=== PATIENT | male | born 1960 | race Caucasian/White ===

== ENCOUNTER 2018-04-18 11:53 | Emergency (ER) | payer OTHER ==
[2018-04-18] MEDS ORDERED: DEXAMETHASONE 10 MG/ML VIAL IVP ONE (12:26)
[2018-04-18] MEDS ORDERED: CLINDAMYCIN 600 MG/DEXTROSE 50 ML IV ONE (12:26)
[2018-04-18] MEDS ORDERED: NS 1,000 ML IV ONE (12:26)
--- NOTE | 2018-04-18 12:29 | EDPHY ---
H & P Stated Complaint: SWELLING/PAIN L THROAT/STEVENSON FEVER/NIGHT SWEATS Time Seen by Provider: 04/18/18 12:21 HPI/ROS: CHIEF COMPLAINT: "My throat is sore" HISTORY OF PRESENT ILLNESS: 57-year-old immunocompetent male complaining of 5 days of progressive pharyngitis symptoms. Secondary to the pain the past 48 hr he has decreased oral intake secondary to pain. Positive Decreased urine output. Complaining of change in voice. Complaining of Pain in the submandibular regions. Complaining of odynophagia. No fever or chills. No nuchal rigidity. No headache. PRIMARY CARE PROVIDER:No primary care provider REVIEW OF SYSTEMS: A ten point review of systems was performed and is negative with the exception of the items mentioned in the HPI PAST MEDICAL & SURGICAL HISTORY: No pertinent medical or surgical history SOCIAL HISTORY: No IV drug use PHYSICAL EXAM (Prior to examination, patient consented to physical exam, hands were washed and my usual and customary physical exam procedures followed) 1) GENERAL: Well-developed, well-nourished, alert and oriented. Appears nontoxic. 2) HEAD: Normocephalic, atraumatic 3) HEENT: Pupils equal, round, reactive to light bilaterally. Sclera anicteric. Oropharynx: Bilateral tonsils are enlarged, kissing. Voice is slightly blunted, slight hot potato voice . Ears bilaterally with normal tympanic membranes. 4) NECK: Full range of motion, sub mandibular region is diffusely tender and edematous. Positive bilateral submandibular adenopathy which is concurrently tender. 5) LUNGS: Clear auscultation bilaterally, no wheezes, no rhonchi, no retractions. 6) HEART: Regular rate and rhythm, no murmur, no heave, no gallop. 7) ABDOMEN: No guarding, no rebound, no focal tenderness, negative McBurney's, negative Mcintosh's, negative Rovsing's, negative peritoneal sign, 8) MUSCULOSKELETAL: Moving all extremities, no focal areas of tenderness, no obvious trauma. No peripheral edema or discoloration. 9) BACK: No CVA tenderness, no midline vertebral tenderness, no fluctuance, no step-off, no obvious trauma, no visual or palpable abnormality. 10) SKIN: No rash, no petechiae. 11) Psychiatric: Patient is oriented X 3, there is no agitation. DIFFERENTIAL DIAGNOSIS: In no particular order including but not limited to peritonsillar abscess, strep pharyngitis, retropharyngeal abscess, - Personal History Current Tetanus Diphtheria and Acellular Pertussis (TDAP): Unsure - Medical/Surgical History Hx Asthma: No Hx Chronic Respiratory Disease: No Hx Diabetes: No Hx Cardiac Disease: No Hx Renal Disease: No Hx Cirrhosis: No Hx Alcoholism: No Hx HIV/AIDS: No Hx Splenectomy or Spleen Trauma: No Other PMH: L LEG FX Constitutional: Initial Vital Signs Temperature (C) 37 C 04/18/18 12:02 Heart Rate 122 H 04/18/18 12:02 Respiratory Rate 20 04/18/18 12:02 Blood Pressure 149/102 H 04/18/18 12:02 O2 Sat (%) 98 04/18/18 12:02 O2 Delivery Mode Room Air Allergies/Adverse Reactions: No Known Allergies Allergy (Unverified 04/18/18 12:02) Home Medications: Medication Instructions Recorded NK [No Known Home Meds] 04/18/18 Medical Decision Making - Diagnostics Imaging Results: Imaging Impressions Neck CT 04/18/18 12:29 Impression: Bilobed left tonsillar abscess with extensive regional inflammation extending inferiorly into the left neck with prevertebral soft tissue swelling to the level of the vocal cords and anterior soft tissue swelling to the thoracic inlet. Findings discussed with Drew Hwang on 04/18/2018 at 14:05. Dr. Jose Manuel Chau reviewed the study and agrees with the findings. ED Course/Re-evaluation: 12:28 p.m.: Patient has enlarged bilateral tonsils, I am concerned over deep space infection. I will order CT angiography of the neck administer IV Decadron and IV clindamycin and re-evaluated. Discussed the indications risks benefits with patient he consents. I saw this patient independently based on established practice protocols. Care of patient under supervision of secondary supervising physician Dr Ramirez with whom I discussed case 12:55 p.m.: I reviewed the patient's laboratory studies. Of particular interest is elevated serum glucose of 435. He does not have a primary care provider, has not seen a primary care provider in several years. He does note that he frequently has to get up 2 nights several times to urinate. I discussed the importance of close follow-up regarding his serum glucose. 2:09 p.m.: Phone consultation with ROBERTA Bobo otolaryngology, discussed the patient's clinical and radiologic findings as well as laboratory findings consistent with newly diagnosed diabetes. We discussed the patient's serum glucose levels and discussed inpatient versus outpatient admission. She recommended outpatient evaluation and will see the patient in the office in a few minutes. Patient will go directly there. I also spent in a significant amount of time discussing with the patient and his the importance of establishing care either [facility] or [facility] or with primary care provider of his choosing regarding his elevated serum glucose levels. - Data Points Laboratory Results: Laboratory Results 04/18/18 12:30 04/18/18 12:30 04/18/18 04/18/18 04/18/18 12:44 12:30 12:30 WBC 14.83 10^3/uL H 10^3/uL (3.80-9.50) RBC 4.49 10^6/uL 10^6/uL (4.40-6.38) Hgb 14.1 g/dL g/dL (13.7-17.5) POC Hgb 15.0 gm/dL gm/dL (13.7-17.5) Hct 39.5 % L % (40.0-51.0) POC Hct 44 % % (40-51) MCV 88.0 fL fL (81.5-99.8) MCH 31.4 pg pg (27.9-34.1) MCHC 35.7 g/dL g/dL (32.4-36.7) RDW 11.9 % % (11.5-15.2) Plt Count 217 10^3/uL 10^3/uL (150-400) MPV 10.4 fL fL (8.7-11.7) Neut % (Auto) 84.0 % H % (39.3-74.2) Lymph % (Auto) 6.4 % L % (15.0-45.0) Lea % (Auto) 8.8 % % (4.5-13.0) Eos % (Auto) 0.1 % L % (0.6-7.6) Baso % (Auto) 0.3 % % (0.3-1.7) Nucleat RBC Rel Count 0.0 % % (0.0-0.2) Absolute Neuts (auto) 12.45 10^3/uL H 10^3/uL (1.70-6.50) Absolute Lymphs (auto) 0.95 10^3/uL L 10^3/uL (1.00-3.00) Absolute Monos (auto) 1.31 10^3/uL H 10^3/uL (0.30-0.80) Absolute Eos (auto) 0.01 10^3/uL L 10^3/uL (0.03-0.40) Absolute Basos (auto) 0.05 10^3/uL 10^3/uL (0.02-0.10) Absolute Nucleated RBC 0.00 10^3/uL 10^3/uL (0-0.01) Immature Gran % 0.4 % % (0.0-1.1) Immature Gran # 0.06 10^3/uL 10^3/uL (0.00-0.10) POC Sodium 133 mEq/L L mEq/L (135-145) Sodium 132 mEq/L L mEq/L (135-145) POC Potassium 4.4 mEq/L mEq/L (3.3-5.0) Potassium 4.5 mEq/L mEq/L (3.3-5.0) POC Chloride 97 mEq/L mEq/L (97-110) Chloride 96 mEq/L L mEq/L (97-110) Carbon Dioxide 21 mEq/l L mEq/l (22-31) Anion Gap 15 mEq/L mEq/L (8-16) POC BUN 15 mg/dL mg/dL (7-23) BUN 16 mg/dL mg/dL (7-23) Creatinine 0.6 mg/dL L mg/dL (0.7-1.3) POC Creatinine 0.6 mg/dL L mg/dL (0.7-1.3) Estimated GFR > 60 Glucose 428 mg/dL H mg/dL (70-100) POC Glucose 435 mg/dL H mg/dL (70-100) Calcium 9.4 mg/dL mg/dL (8.5-10.4) Medications Given: Discontinued Medications Dexamethasone (Decadron Injection) 10 mg IVP EDNOW ONE Stop: 04/18/18 12:27 Last Admin: 04/18/18 12:56 Dose: 10 mg Clindamycin Phosphate/Dextrose (Cleocin 600 Mg (Premix)) 50 mls @ 100 mls/hr IV EDNOW ONE PRN Reason: Protocol Stop: 04/18/18 12:55 Last Admin: 04/18/18 12:53 Dose: 50 mls Sodium Chloride (Ns) 1,000 mls @ 0 mls/hr IV ONCE ONE PRN Reason: Wide Open Stop: 04/18/18 12:27 Last Admin: 04/18/18 12:57 Dose: 1,000 mls Point of Care Test Results: Chemistry 04/18/18 12:44 POC Sodium 133 mEq/L L mEq/L (135-145) POC Potassium 4.4 mEq/L mEq/L (3.3-5.0) POC Chloride 97 mEq/L mEq/L (97-110) POC BUN 15 mg/dL mg/dL (7-23) POC Creatinine 0.6 mg/dL L mg/dL (0.7-1.3) POC Glucose 435 mg/dL H mg/dL (70-100) ISTAT H&H 04/18/18 12:44 POC Hgb 15.0 gm/dL gm/dL (13.7-17.5) POC Hct 44 % % (40-51) Departure - Departure Disposition: Home, Routine, Self-Care Clinical Impression: Left peritonsillar abscess Condition: Good Instructions: Peritonsillar Abscess (ED) Additional Instructions: Go directly to [facility] ear nose and throat, they are expecting you. You received an IV dose of clindamycin and Decadron in the ER. You need to establish primary care. Your blood glucose is too high. You more than likely have diabetes. Referrals: Kamla Bobo PA [Physician [employer]] - 04/18/18 2:30 pm (Go directly to [facility] ENT across the hospital) [facility],. [Clinic] - As per Instructions [facility],. [Clinic] - As per Instructions
[2018-04-18 12:39] LABS: PLATELET COUNT 217 10^3/uL (150-400)
[2018-04-18] MEDS ORDERED: IOPAMIDOL (ISOVUE-300) 100 ML BTL ONE (12:57)
[2018-04-18 14:29] VITALS: BP 133/62
== END 2018-04-18 14:27 | disposition home or self-care (01) ==
DX: J36 Peritonsillar abscess (principal); E86.9 Volume depletion, unspecified
CPT/HCPCS: 82435-PO; 82565-PO; 82947-PO; 84132-PO; 84295-PO; 84520-PO; 85014-PO; 96365; J1100; Q9967

== ENCOUNTER → 2018-08-01 | Outpatient (CLI) | payer OTHER | LOC: CIMAGING 07:09 | PROVIDERS: ATTEND Family Medicine | DX: E80.6 Other disorders of bilirubin metabolism (principal); R10.11 Right upper quadrant pain; K80.20 Calculus of gallbladder without cholecystitis without obstruction; R17 Unspecified jaundice | CPT/HCPCS: 76705-PO ==